=== PATIENT | female | born 1950 | race Two or more races ===

== ENCOUNTER → 2022-06-05 | Day surgery (SDC) | payer OTHER | END | disposition home or self-care (01) | LOC: FMAMMOTONE 12:59 | PROVIDERS: ATTEND Family Medicine | PROC: 0HBU3ZX Excision of Left Breast, Percutaneous Approach, Diagnostic (ICD-10-PCS; principal; 2022-06-05) | DX: Z53.8 Procedure and treatment not carried out for other reasons (principal) | CPT/HCPCS: 19081 ==

== ENCOUNTER → 2022-11-18 | Day surgery (SDC) | payer OTHER | END | disposition home or self-care (01) | LOC: FMAMMOTONE 12:57 | PROVIDERS: ATTEND Family Medicine | PROC: 0HBU3ZX Excision of Left Breast, Percutaneous Approach, Diagnostic (ICD-10-PCS; principal; 2022-11-18) | DX: Z53.09 Procedure and treatment not carried out because of other contraindication (principal); R92.0 Mammographic microcalcification found on diagnostic imaging of breast | CPT/HCPCS: 19081 ==